=== PATIENT | female | born 1965 | race Caucasian/White ===

== ENCOUNTER 2017-08-05 09:03 | Day surgery (SDC) | payer BC ==
[~2017-08-05] VITALS: Ht 160 cm; Wt 57.8 kg
[2017-08-05 10:01] VITALS: Ht 160 cm; Wt 57.8 kg
[2017-08-05 10:26] VITALS: BP 115/58; PULSE 58; RESP 24
--- NOTE | 2017-08-05 11:19 | OPPN ---
Date/Time of Note Date/Time of Note DATE: 08/05/17 TIME: 11:17 Operative Report Preoperative Diagnosis Abdominal pain Chronic heartburn Screening Postoperative Diagnosis Gastroesophageal reflux disease Gastritis Internal hemorrhoids No colon neoplasm was identified Operation/Procedure Performed Esophagogastroduodenoscopy and biopsy Colonoscopy Surgeon see signature line information services assistant None Anesthesia: moderate sedation Estimated blood loss: none Transfusion Required none Specimen Gastric mucosal biopsy Grafts/Implants none Complications none EUGENIA GRIMES MD Aug 05, 2017 11:19
[2017-08-05] MEDS ORDERED: MIDAZOLAM 1 MG/ML 2 ML INJ ONE ×2 (11:30)
[2017-08-05] MEDS ORDERED: FENTAnyl 50 MCG/ML VIAL ONE (11:30)
--- NOTE | 2017-08-05 12:36 | GILP ---
DATE OF PROCEDURE: NAME OF PROCEDURES: 1. Esophagogastroduodenoscopy and biopsy. 2. Colonoscopy. SURGEON: Eugenia Duffy MD PREOPERATIVE DIAGNOSES: 1. Abdominal pain. 2. Chronic heartburn. 3. Screening colonoscopy. POSTOPERATIVE DIAGNOSES: 1. Gastroesophageal reflux disease. 2. Gastritis with erosions. 3. Gastric mucosal biopsies were taken for Helicobacter pylori test. 4. Colonoscopy all the way to the cecum. 5. Internal hemorrhoids. 6. No colon neoplasm was identified. INDICATION FOR THE PROCEDURE: Ms. Keyanna Carrillo is a 51-year-old female patient who had upper abdomina l pain and chronic heartburn, not responding to therapy. She also needed screening colonoscopy. The procedures and possible complications are well explained to the patient. The patient understood and consented to the procedure. DESCRIPTION OF PROCEDURE: Under the influence of fentanyl and Versed, the gastroscope was carefully introduced into the esophagus and under direct vision, it was advanced to the stomach and through t he pylorus into the duodenal bulb and descending duodenum. FINDINGS: ESOPHAGUS: The patient had gastroesophageal reflux disease. STOMACH: She had gastritis with erosions. Gastric mucosal biopsies were taken for H. pylori test. DUODENUM: Normal. The colonoscope was carefully introduced in the rectum and under direct vision, it was advanced all the way to the cecum. FINDINGS: The patient had internal hemorrhoids. No colon neoplasm was identified. She tolerated the procedure very well and there was no complication from the procedure. At the end of the procedures, she was awake with stable vital signs and she was discharged home to the care of her family. IMPRESSION: Please see postoperative diagnoses. PLAN: 1. Nexium 24 hours p.o. in the morning. 2. Await H. pylori test report. 3. Next screening colonoscopy in 10 years. Dictated By: EUGENIA ROJAS/RAPHAEL Conf#: [id number] DID#: [id number]
== END 2017-08-05 15:25 | disposition home or self-care (01) ==
LOC: GIL 09:03
PROVIDERS: ATTEND Internal Medicine Gastroenterology
DX: Z12.11 Encounter for screening for malignant neoplasm of colon (principal); K21.9 Gastro-esophageal reflux disease without esophagitis; K29.70 Gastritis, unspecified, without bleeding; K25.9 Gastric ulcer, unspecified as acute or chronic, without hemorrhage or perforation; K64.8 Other hemorrhoids
CPT/HCPCS: 87081; J2250; J3010